=== PATIENT | female | born 1985 ===

== ENCOUNTER 2018-01-07 22:44 | Inpatient (IN) | payer OTHER ==
[~2018-01-07] VITALS: Ht 172.7 cm; Wt 78.9 kg
[2018-01-08] MEDS ORDERED: PRENATAL TABLE1 EACH PO (00:06)
== END 2018-01-10 12:40 | disposition home or self-care (01) | DRG 775 ==
LOC: LDR 22:44 → OB/GYN 22:44
PROC: 10E0XZZ Delivery of Products of Conception, External Approach (ICD-10-PCS; principal; 2018-01-07)
PROC: 4A1HXCZ Monitoring of Products of Conception, Cardiac Rate, External Approach (ICD-10-PCS; 2018-01-07)
DX: O69.81X0 Labor and delivery complicated by cord around neck, without compression, not applicable or unspecified (principal); O60.14X0 Preterm labor third trimester with preterm delivery third trimester, not applicable or unspecified; O99.820 Streptococcus B carrier state complicating pregnancy; Z3A.36 36 weeks gestation of pregnancy; Z37.0 Single live birth